=== PATIENT | male | born 1935 | race Caucasian/White ===

== ENCOUNTER 2022-06-15 09:56 | Outpatient (CLI) | payer MEDICARE, SELFPAY ==
--- NOTE | ~2022-06-15 | CT_ITS ---
EXAMINATION: CT diagnostic chest wo con DATE: 06/15/2022 10:35 INDICATION: Pulmonary nodule, history of prostate cancer TECHNIQUE: Computed tomography (CT) of the chest was performed without intravenous contrast. The dose -length product (DLP) was 156.12 mGy-cm. Automated exposure control and iterative reconstruction tech nique were employed. COMPARISON: None FINDINGS: Calcified pulmonary nodules and calcified left hilar lymph nodes are consistent with old gr anulomatous disease. There are multiple calcified pleural plaques throughout the lungs. There is a 3. 3 x 1.4 cm mass in the medial aspect of the left upper lobe. No pleural effusion or pneumothorax. No pathologically enlarged thoracic lymph nodes are identified. The heart size is normal. Calcified ton nary artery atherosclerosis is noted. There is a 2.3 cm cyst of the left kidney upper pole. There are multiple mild mid thoracic compression fractures. There is a sclerotic lesion in the sternum to the right of midline (image 48). IMPRESSION: 1. Left upper lobe mass concerning for primary bronchogenic carcinoma. Biopsy is recommended. 2. Multiple calcified pleural plaques which can be seen in the setting of prior asbestos exposure. 3. Sclerotic lesion of the sternum concerning for metastatic disease given history of prostate cancer . Reviewed, dictated and finalized at location F. N PERFORATOR OPERATOR IMPRESSION: 1. Left upper lobe mass concerning for primary bronchogenic carcinoma. Biopsy i s recommended. 2. Multiple calcified pleural plaques which can be seen in the setting of prior asbestos exposure. 3. Sclerotic lesion of the sternum concerning for metastatic disease given hist ory of prostate cancer.
== END 2022-06-15 09:57 | disposition home or self-care (01) ==
DX: R91.8 Other nonspecific abnormal finding of lung field (principal); J92.9 Pleural plaque without asbestos; Z85.46 Personal history of malignant neoplasm of prostate
CPT/HCPCS: 71250

== ENCOUNTER 2022-06-17 14:46 | Outpatient (CLI) | payer MEDICARE, SELFPAY ==
--- NOTE | ~2022-06-17 | CT_ITS ---
EXAMINATION: CT abdomen pelvis w con INDICATION: History of prostate cancer TECHNIQUE: Computed tomographic images of the abdomen and pelvis were obtained after the administrati on of 100 cc of Omnipaque 350 intravenous contrast. The dose-length product (DLP) was 391.40 mGy-cm. Automated exposure control and iterative reconstruction technique were employed. COMPARISON: 06/15/2022 FINDINGS: Minimal dependent atelectasis is present in the lung bases. The heart size is normal. The l iver, spleen, gallbladder, and left adrenal gland are normal. There is a 2.9 cm mass of the right adr enal gland. There is a 12 mm cystic lesion in the tail of the pancreas. Cysts of the kidneys measure up to 1.8 cm on the left. There is calcified atherosclerosis of the aorta and many of the other arter ies. No pathologically enlarged abdominal or pelvic lymph nodes are identified. There is no free intr aperitoneal gas or evidence of bowel obstruction. There are changes of prostatectomy and pelvic lymph node dissection. A large volume of colonic stool is present. The appendix is normal. There is severe lumbar spondylosis. IMPRESSION: 1. Indeterminate right adrenal mass which could reflect an adenoma or metastatic disease. Recommend f urther evaluation with adrenal protocol CT or MRI. 2. 12 mm cystic lesion of the tail the pancreas. The differential diagnosis includes pseudocyst, intr aductal papillary mucinous neoplasm (IPMN), mucinous cystic neoplasm (MCN), and the less common serou s cystadenoma and neuroendocrine tumor. Correlate for history of pancreatitis. Follow-up pancreas protocol CT or MRI in two years is recommended. Reviewed, dictated and finalized at location F. IENCE TRAINER IMPRESSION: 1. Indeterminate right adrenal mass which could reflect an adenoma or metastati c disease. Recommend further evaluation with adrenal protocol CT or MRI. 2. 12 mm cystic lesion of the tail the pancreas. The differential diagnosis inc ludes pseudocyst, intraductal papillary mucinous neoplasm (IPMN), mucinous cyst ic neoplasm (MCN), and the less common serous cystadenoma and neuroendocrine tu mor. Correlate for history of pancreatitis. Follow-up pancreas protocol CT or MRI in two years is recommended.
--- NOTE | ~2022-06-17 | XR_ITS ---
XR knee LT min 4V DATE: 06/17/2022 16:32 INDICATION: Left knee pain. Left knee popped 3 weeks ago while turning. TECHNIQUE: [place] and standing AP, PA and lateral views COMPARISON: None FINDINGS: Diffuse osteopenia. There is evidence of suprapatellar knee joint effusion. There is superior pole patellar enthesopathy at the quadriceps tendon insertion. Joint space narrowing and mild periarticular spurring of the patellofemoral compartment. Moderate los s of height at the medial compartment joint space. No fracture or dislocation, periosteal reaction or bone destruction, radiopaque intra-articular loose body or chondrocalcinosis is evident. 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 NCIAL REPORTING DIRECTOR
[2022-06-17 15:11] LABS: Estimated Glomerular Filt Rate 30
== END 2022-06-17 14:47 | disposition home or self-care (01) ==
PROVIDERS: Urology
DX: C61 Malignant neoplasm of prostate (principal); M25.462 Effusion, left knee; E27.8 Other specified disorders of adrenal gland; K86.89 Other specified diseases of pancreas
CPT/HCPCS: 73564; 74177; Q9967

== ENCOUNTER 2022-11-10 11:27 | Outpatient (CLI) | payer MEDICARE, SELFPAY ==
--- NOTE | ~2022-11-10 | CT_ITS ---
EXAMINATION:CT diagnostic chest wo con DATE: 11/10/2022 11:55 INDICATION: Lung nodule. TECHNIQUE: Computed tomography (CT) of the chest was performed without intravenous contrast. Automate d exposure control and iterative reconstruction technique were employed. The dose-length product (DLP ) was 98.05 mGy-cm. COMPARISON: Chest CT 06/15/2022, 03/23/22 FINDINGS: There is mild emphysema. There is mild scarring at the lung apices. There are calcified ple ural plaques bilaterally, which may be seen with asbestosis exposure. There is a 2.9 x 3.5 x 2.3 cm ( average 2.9 cm) nodule in left lung upper lobe with air bronchograms that measured 3.2 x 2.2 x 2.8 cm on 06/15/22 and 3.4 x 2.0 x 2.8 cm (average 2.7 cm) on 03/23/22. There is mild peripheral septal thic kening in the inferior lungs, consistent with asbestosis. No pleural effusion. There is left atrial e nlargement of the heart. There are coronary artery calcifications. No pericardial effusion. There is a small sliding hernia. There is a 2.9 cm mass measuring soft tissue attenuation in right adrenal gla nd without change, likely an adenoma. There is a 2.3 cm cyst in left kidney. There is mild chronic he ight loss of multiple vertebral bodies. There is severe cervical spondylosis and moderate thoracic sp ondylosis. There is a worsened 1.9 cm sclerotic lesion in the sternum. There is a chronic sclerotic l esion in right first rib. IMPRESSION: 1. 2.9 cm left upper lobe pulmonary nodule, increased from 2.7 cm on 03/23/22. This finding is suspici ous for low-grade adenocarcinoma. Consider CT-guided core needle biopsy. 2. Worsened sclerotic lesion in the sternum suspicious for metastatic prostate cancer. A stable scler otic lesion of right first rib may be a benign bone island or metastatic disease. 3. 2.9 cm mass in right adrenal gland without change from 03/23/2022, most likely an adenoma. Reviewed, dictated and finalized at location A. IMPRESSION: 1. 2.9 cm left upper lobe pulmonary nodule, increased from 2.7 cm on 03/23/22. T his finding is suspicious for low-grade adenocarcinoma. Consider CT-guided core needle biopsy. 2. Worsened sclerotic lesion in the sternum suspicious for metastatic prostate cancer. A stable sclerotic lesion of right first rib may be a benign bone islan d or metastatic disease. 3. 2.9 cm mass in right adrenal gland without change from 03/23/2022, most likel y an adenoma.
== END 2022-11-10 11:28 | disposition home or self-care (01) ==
PROVIDERS: Visit Provider Internal Medicine Pulmonary Disease
DX: R91.1 Solitary pulmonary nodule (principal); M89.9 Disorder of bone, unspecified; E27.9 Disorder of adrenal gland, unspecified
CPT/HCPCS: 71250

== ENCOUNTER 2023-01-04 12:37 | Outpatient (CLI) | payer MEDICARE, SELFPAY ==
--- NOTE | ~2023-01-04 | PE_ITS ---
EXAMINATION: PET_PETPSMAST_PT DATE: 01/04/2023 14:51 INDICATION: Prostate cancer. TECHNIQUE: 9.378 mCi of piflufolastat F-18 was administered intravenously. Low dose computed tomograp hy (CT) images were acquired from the base of the brain to the proximal thighs for attenuation correc tion and anatomic localization. Automated exposure control was employed. Dose-length product (DLP) wa s 481 mGy-cm. Positron emission tomography (PET) images were acquired in the same distribution. COMPARISON: PET/CT 04/07/2022, chest CT 11/10/2021 FINDINGS: Head/neck: There are no pathologically enlarged lymph nodes. Chest: There are calcified pleural plaques bilaterally, which may be seen with asbestosis exposure. T here is a 3.7 x 2.3 cm mass in left lung upper lobe with maximum SUV of 23. There is a 4 mm radiopaqu e foreign body in the mass. There is a 4 mm radiopaque foreign body superficial to the mass. These fi ndings may be brachytherapy seeds. There is a normal-sized lymph node at the left hilum with maximum SUV of 49. No pleural effusion. The heart size is normal. There are coronary artery calcifications. N o pericardial effusion. There is a sclerotic lesion in the sternum with maximum SUV of 35.2. There i s a benign bone island in right first rib. Abdomen/pelvis/proximal thighs: The liver, gallbladder, spleen, pancreas, and left adrenal gland are normal. There is a 2.8 cm mass in right adrenal gland measuring soft tissue attenuation without incre ased activity on this exam or the PET from 04/07/22, likely an adenoma. There are cysts in right kidney measuring up to 14 mm. Left kidney is normal. There is calcified atherosclerosis of the aorta and ma ny of the other arteries. There are changes of prostatectomy. There are no dilated loops of bowel. Th ere are no pathologically enlarged lymph nodes. There is no free intraperitoneal fluid. IMPRESSION: 1. Left lung upper lobe mass, left hilar lymphadenopathy, and sclerotic lesion of the sternum with in creased activity, consistent with metastatic disease. 2. 2.8 cm mass in right adrenal gland without increased activity on this PET or the PET from 04/07/2022 , likely an adenoma. Reviewed, dictated and finalized at location A. IMPRESSION: 1. Left lung upper lobe mass, left hilar lymphadenopathy, and sclerotic lesion of the sternum with increased activity, consistent with metastatic disease. 2. 2.8 cm mass in right adrenal gland without increased activity on this PET or the PET from 04/07/2022, likely an adenoma.
== END 2023-01-04 12:38 | disposition home or self-care (01) ==
PROVIDERS: Visit Provider Urology
DX: C61 Malignant neoplasm of prostate (principal); R91.8 Other nonspecific abnormal finding of lung field; R59.1 Generalized enlarged lymph nodes; M89.9 Disorder of bone, unspecified; E27.9 Disorder of adrenal gland, unspecified
CPT/HCPCS: 78815; A9595

== ENCOUNTER 2023-05-15 06:44 | Outpatient (CLI) | payer MEDICARE, SELFPAY ==
--- NOTE | ~2023-05-15 | CT_ITS ---
Clinical Indication: Prostate cancer CT Scan of the Chest, Abdomen, and Pelvis with Contrast: Technique: Contiguous sections were acquired throughout the chest, abdomen, and pelvis after intraven ous administration of 100 cc of Omnipaque 350. Dose reduction technique was used on this scan by uti lizing automated exposure control and iterative reconstruction technique. The dose-length product (DL P) was 615.15 mGy-cm. COMPARISON: 11/10/2022 an 06/17/2022 Findings: There is no evidence of any significant mediastinal, hilar or axillary lymphadenopathy. The mediastin al soft tissues and vascular structures appear normal. There is no evidence of pleural or pericardial effusion. Calcified pleural plaques are present. Lesion in the anteromedial left upper lobe is somewhat decreased in size, and more irregular shape, w ith metallic fiducial markers or biopsy clips present within it. No new, suspicious pulmonary lesion identified. The liver, spleen, gallbladder, left adrenal gland and kidneys are within normal limits. Stable small cystic lesion in the pancreatic body noted. Stable 2.8 cm right adrenal nodule. There are atheroscle rotic calcifications of the aorta. No lymphadenopathy. No bowel obstruction or bowel wall thickening. There is no evidence to suggest acute appendicitis. Urinary bladder is unremarkable. Evidence of prior prostatectomy noted. No pelvic mass seen. No ascit es. Probable mild interval increase in size of sclerotic lesion in the right side of the sternum, suspici ous for metastatic lesion. Impression: Interval decrease/improvement in left upper lobe pulmonary lesion since prior exam, compatible with p artial response to therapy. Correlate with clinical/treatment history. Mild interval increase in sclerotic lesion in the right side of sternum, suspicious for metastatic pr ostate carcinoma lesion. Stable 2.8 cm right adrenal lesion, compatible with adenoma. Calcified pleural plaques and cystic pancreatic lesion are unchanged. Reviewed, dictated and finalized at location M. Impression: Interval decrease/improvement in left upper lobe pulmonary lesion since prior e xam, compatible with partial response to therapy. Correlate with clinical/treat ment history. Mild interval increase in sclerotic lesion in the right side of sternum, suspic ious for metastatic prostate carcinoma lesion. Stable 2.8 cm right adrenal lesion, compatible with adenoma. Calcified pleural plaques and cystic pancreatic lesion are unchanged.
[2023-05-15 07:16] LABS: Estimated Glomerular Filt Rate 48
== END 2023-05-15 06:45 | disposition home or self-care (01) ==
PROVIDERS: Visit Provider Internal Medicine Medical Oncology
DX: C61 Malignant neoplasm of prostate (principal); M89.9 Disorder of bone, unspecified; E27.9 Disorder of adrenal gland, unspecified; J92.9 Pleural plaque without asbestos; K86.2 Cyst of pancreas
CPT/HCPCS: 71260; 74177; Q9967

== ENCOUNTER 2023-08-16 08:33 | Outpatient (CLI) | payer MEDICARE, SELFPAY ==
--- NOTE | ~2023-08-16 | CT_ITS ---
Clinical Indication: Prostate cancer CT Scan of the Chest, Abdomen, and Pelvis with Contrast: Technique: Contiguous sections were acquired throughout the chest, abdomen, and pelvis after intraven ous administration of 100 cc of Omnipaque 350. Dose reduction technique was used on this scan by rosibel mejía automated exposure control and iterative reconstruction technique. The dose-length product (DL P) was 642.63 mGy-cm. COMPARISON: 05/15/2023 Findings: There is no evidence of any significant mediastinal, hilar or axillary lymphadenopathy. The mediastin al soft tissues and vascular structures appear normal. There is no evidence of pleural or pericardial effusion. Calcified pleural plaques are present. There is probable chronic left upper lobe scarring or post therapy change, stable from prior exam. Ri ght lung clear. The liver, spleen, gallbladder, left adrenal gland, and kidneys are within normal limits. Stable smal l cystic lesion at the pancreatic tail. Stable 3 cm right adrenal nodule, indeterminate. There are at herosclerotic calcifications of the aorta. No lymphadenopathy. No bowel obstruction or bowel wall thickening. There is no evidence to suggest acute appendicitis. Urinary bladder is unremarkable. Patient is status post prostatectomy. No pelvic mass evident. No asc ites. Stable mild compression deformities of T8 and T10. Sclerotic lesion seen previously noted ty um is less conspicuous on the current exam. Impression: 3 cm right adrenal nodule, stable dating back to 06/05/2022. Is indeterminate, could reflect benign le dwayne given relative stability over time. Sclerotic lesion in the right side of the sternum is less conspicuous on the current exam, possibly i ndicating partial response to therapy. Stable chronic left upper lobe scarring or post therapy change. Stable small cystic lesion in the pancreas. Status post prostatectomy. Reviewed, dictated and finalized at location M. VATION PLANT SUPERVISOR Impression: 3 cm right adrenal nodule, stable dating back to 06/05/2022. Is indeterminate, c ould reflect benign lesion given relative stability over time. Sclerotic lesion in the right side of the sternum is less conspicuous on the cu rrent exam, possibly indicating partial response to therapy. Stable chronic left upper lobe scarring or post therapy change. Stable small cystic lesion in the pancreas. Status post prostatectomy.
[2023-08-16 08:59] LABS: Estimated Glomerular Filt Rate 48
== END 2023-08-16 08:34 | disposition home or self-care (01) ==
PROVIDERS: Visit Provider Internal Medicine Medical Oncology
DX: C61 Malignant neoplasm of prostate (principal); E27.9 Disorder of adrenal gland, unspecified; K86.2 Cyst of pancreas; J98.4 Other disorders of lung; M89.9 Disorder of bone, unspecified; Z90.79 Acquired absence of other genital organ(s)
CPT/HCPCS: 71260; 74177; Q9967